=== PATIENT | male | born 1975 | race Two or more races ===

== ENCOUNTER 2018-07-07 03:51 | Emergency (ER) | payer OTHER ==
[~2018-07-07] VITALS: Ht 180.3 cm; Wt 105.6 kg
[~2018-07-07 03:51] MED LIST: BISA-155 PO; BISA10SU60 RC
[2018-07-07 03:56] VITALS: BP 130/87
[2018-07-07] MEDS ORDERED: HYDROcodone/acetaminophen 5mg/325mg tablet PO ONE (04:25)
[2018-07-07] MEDS ORDERED: HYDR25SU32 RC (04:30)
[2018-07-07] MEDS ORDERED: HYDR-3965 PO (04:30)
== END 2018-07-07 04:42 | disposition home or self-care (01) ==
LOC: ER 03:52
DX: K64.9 Unspecified hemorrhoids (principal)
CPT/HCPCS: 99283